=== PATIENT | male | born 1945 | race Caucasian/White ===

== ENCOUNTER 2020-11-23 07:20 | Day surgery (SDC) | payer OTHER ==
[2020-11-23] MEDS ORDERED: NA CHLORIDE 0.9% 1,000 ML ONE (07:58)
[2020-11-23] MEDS ORDERED: CEFAZOLIN/SWI 1gm 1 GM/10 ML SYR ONE (07:58)
[2020-11-23] MEDS ORDERED: propofoL 200 MG/20 ML VIAL IV ONE (08:21)
[2020-11-23] MEDS ORDERED: FENTANYL CITR 100 MCG/2 ML ONE (08:21)
[2020-11-23] MEDS ORDERED: MIDAZOLAM HCL 2 MG/2 ML INJ ONE (08:21)
[2020-11-23] MEDS ORDERED: D50W 50 ML IV ONE (08:21)
[2020-11-23] MEDS ORDERED: LIDOCAINE 2% MPF 5 ML VIAL ONE (08:22)
[2020-11-23] MEDS ORDERED: dexAMETHasone 10 MG/ML VIAL ONE (08:22)
[2020-11-23] MEDS ORDERED: BUPIVACA 0.25%/EPI 0.0005% MDV 50 ML VIAL ONE (08:30)
[2020-11-23] MEDS ORDERED: EPHEDRINE SULF 50 MG/ML VIAL ONE (08:55)
[2020-11-23] MEDS ORDERED: Phenylephrine HCl 10 MG/ML 1 ML VIAL ONE (09:00)
--- NOTE | 2020-11-23 09:12 | P.OP ---
Preoperative diagnosis: Upper Back infected sebaceous cyst Postoperative diagnosis: Upper Back infected sebaceous cyst Primary procedure: Wide local excision of Upper Back infected sebaceous cyst Anesthesia: GETA + Local Estimated blood loss: <5cc Specimen: cultures, debridement tissue Findings: 5cm x 5cm down to fascia over muscle Complications: None Transferred to: Recovery Room Condition: Good
[2020-11-23] MEDS ORDERED: SODIUM HYPOCHLORITE 0.25% 473 ML ONE (09:21)
--- NOTE | 2020-11-23 10:33 | OP ---
Date of Procedure: 11/23/2020 Surgeon: Manny Rivera MD, Preoperative Diagnosis: Upper back infected sebaceous cyst. Postoperative Diagnosis: Upper back infected sebaceous cyst. Procedure Performed: Wide local excision of upper back infected sebaceous cyst. Anesthesia: General endotracheal plus local. Estimated Blood Loss: Less than 5 cc. Specimen: Cultures and debridement tissue. Findings: A 5 x 5 cm down to the fascia overlying muscle infected sebaceous cyst with abscess. Complications: None. Disposition: The patient was transferred to recovery room in good condition. Procedure In Detail: After informed consent was obtained, the patient was brought to the operating r oom, prepped and draped in the usual sterile fashion. After adequate anesthesia was achieved, an are a of the upper back was anesthetized with 0.25% Marcaine and sharply incised. An ellipse of skin was taken out as it had a crater effect from previous rupture of infected sebaceous cyst. Upon dissecti on, an abscess was encountered. This was cultured for both aerobic and anaerobic speciation at this time. I then circumferentially dissected down to the fascia overlying the muscle, removing approxima tely 5 cm x 5 cm down to the muscle portion of debridement tissue which was consistent with an infect ed epidermal inclusion cyst. The specimen was sent off for pathologic examination. The area was music copyist iously irrigated. Hemostasis was achieved with electrocautery quite easily. Then, additional irriga tion was performed at this area and the wound was then packed with 0.25% Dakin solution on a damp Ker lix roll and a dry dressing was placed over top. The patient tolerated the procedure well without ev idence of complication and transferred to PACU in good condition. All counts were correct at the end of the case. VERONICA/KENNY Voice ID: [id number] Report ID: [id number]
[2020-11-23 10:51] VITALS: TEMP 97.7
[2020-11-23] MEDS ORDERED: HYDROCODONE/APAP 7.5/325 MG TAB ONE (10:54)
[2020-11-23 11:57] VITALS: BP 124/32; O2SAT 96
== END 2020-11-23 11:20 | disposition home or self-care (01) ==
LOC: OR 07:20
PROVIDERS: ATTEND Surgery
PROC: 0JB70ZZ Excision of Back Subcutaneous Tissue and Fascia, Open Approach (ICD-10-PCS; principal; 2020-11-23 08:30)
DX: L72.0 Epidermal cyst (principal); Z20.822 Contact with and (suspected) exposure to COVID-19
CPT/HCPCS: 87070; 87205; 82947 ×2; 88304; 87075; 11406; U0002; J2704; J2370; J2250; J3010; J0690; J7030; J1100